=== PATIENT | female | born 1955 | race Caucasian/White ===

== ENCOUNTER 2016-06-05 10:32 | Emergency (ER) | payer OTHER, MEDICARE ==
--- NOTE | 2016-06-05 10:46 | ED GI/GU/ABDOMINAL COMPLAINT ---
History of Present Illness General Chief Complaint: Abdominal Pain/Flank Pain Stated Complaint: LBP ABD PAIN Source: patient Exam Limitations: no limitations Vital Signs & Intake/Output Vital Signs & Intake/Output Vital Signs Date Time Temp Pulse Resp B/P Pulse O2 O2 Flow FiO2 Ox Delivery Rate 06/05 1238 96.9 88 18 134/62 97 Room Air 06/05 1035 97.5 75 16 147/82 97 Room Air ED Intake and Output 06/06 0000 06/05 1200 Intake Total 1000 Output Total 1 Balance 999 Intake, IV 1000 Output, Urine 1 Allergies Coded Allergies: latex (RASH 06/05/16) Reconcile Medications Albuterol Sulfate (Proair Hfa) 90 MCG HFA.AER.AD 2 PUF INH Q4-6 PRN PRN RESP (Reported) Beclomethasone Dipropionate (QVAR) 80 MCG AER.W.ADAP 2 PUF INH BID ASTHMA ( Reported) Glimepiride (Amaryl) 1 MG TABLET 0.5 TAB PO DAILY DM (Reported) Insulin Glargine,Hum.rec.anlog (Lantus Solostar) 100 UNIT/ML (3 ML) INSULN.PEN 4 UNIT SC QPM DM (Reported) Insulin Lispro (Humalog) 100 UNIT/ML CARTRIDGE DM (Reported) Metformin HCl (Fortamet) 500 MG TAB.ER.24 1 TAB PO BID DM (Reported) Metoprolol Succ XL (Toprol Xl) 50 MG TAB 1 TAB PO DAILY HTN (Reported) Rosuvastatin Calcium (Crestor) 10 MG TABLET 1 TAB PO DAILY HEART HEALTH ( Reported) Sertraline HCl 50 MG TABLET 1 TAB PO DAILY MENTAL HEALTH (Reported) Telmisartan (Micardis) 40 MG TABLET 0.5 TAB PO DAILY HTN (Reported) Telmisartan/Hydrochlorothiazid (Micardis Hct 80-25 MG Tablet) 80 MG-25 MG TABLET 0.5 TAB PO DAILY HTN (Reported) Triage Note: TRIAGE; PT TO ED S/P WAKING UP WITH LOWER BACK PAIN RADIATING TO SUSAN FLANK. DENIES ANY NEW URINARY S/S. STATES UNABLE TO SLEEP LAST NIGHT. DENIES ANY N/V. FEELS LIKE SHE HAS A FEVER, 97.5 IN TRIAGE AT THIS TIME. FEELS LIKE HER LOWER ABDOMEN IS FIRM WELL. Triage Nurses Notes Reviewed? yes ? N Is pt currently ? No HPI: 61-year-old female arrived to triage to room 6 for evaluation of low back pain that radiates to her lower abdomen since early this morning. She reports that the pain woke her up out of sleep. She denies any nausea, vomiting or diarrhea. She denies any fever or chills. She denies any change in her bowel or bladder patterns. She denies any urgency, hesitancy, frequency. Her last bowel movement was last night and she last ate this morning. He reports that she has a history of kidney stones and it feels a same that the pain is across her lower back, sharp and moderate in sensation. SHe denies any recent trauma. (CANDELARIO HI APRN) Past History Travel History Traveled to [place] past 21 day No Medical History Any Pertinent Medical History? see below for history Cardiovascular: hyperlipidemia Renal: nephrolithiasis Endocrine: diabetes Surgical History Surgical History: cholecystectomy, , hysterectomy Psychosocial History What is your primary language Indonesian Tobacco Use: Never used ETOH Use: denies use Illicit Drug Use: denies illicit drug use Family History Hx Contributory? No (CANDELARIO HI APRN) Review of Systems Review of Systems Constitutional: Reports: no symptoms. EENTM: Reports: no symptoms. Respiratory: Reports: no symptoms. Cardiovascular: Reports: no symptoms. GI: Reports: abdominal pain. Genitourinary: Reports: no symptoms. Musculoskeletal: Reports: back pain. Skin: Reports: no symptoms. Neurological/Psychological: Reports: no symptoms. Hematologic/Endocrine: Reports: no symptoms. Immunologic/Allergic: Reports: no symptoms. All Other Systems: Reviewed and Negative (CANDELARIO HI APRN) Physical Exam Physical Exam General Appearance: well developed/nourished, no apparent distress, alert, awake , comfortable Head: atraumatic, normal appearance Eyes: Bilateral: normal appearance, PERRL, EOMI, normal inspection. Neck: normal inspection, supple, full range of motion Respiratory: normal breath sounds, chest non-tender, no respiratory distress Cardiovascular: regular rate/rhythm Peripheral Pulses: 2+ radial (R), 2+ radial (L) Gastrointestinal: normal bowel sounds, soft, non-tender Back: normal inspection, normal range of motion Extremities: normal range of motion, evidence of injury, pelvis stable Neurologic/Psych: no motor/sensory deficits, awake, alert, oriented x 3, normal gait, normal mood/affect Skin: intact, normal color, warm/dry Core Measures ACS in differential dx? No Severe Sepsis Present: No Septic Shock Present: No (KOLTON MUKHERJEE,CANDELARIO) Progress Differential Diagnosis: kidney stone, UTI/pyelo Plan of Care: Orders Procedure Date/time Status LIPASE 06/05 1046 Complete COMPREHENSIVE METABOLIC PANEL 06/05 1046 Complete CBC WITHOUT DIFFERENTIAL 06/05 1046 Complete AMYLASE 06/05 1046 Complete URINALYSIS 06/05 1037 Complete Laboratory Tests 06/05/16 1058: Anion Gap 13, Estimated GFR > 60, BUN/Creatinine Ratio 28.6 H, Glucose 188 H, Calcium 9.8, Total Bilirubin 1.3, AST 20, ALT 36, Alkaline Phosphatase 64, Total Protein 7.7, Albumin 4.5, Globulin 3.2, Albumin/Globulin Ratio 1.4, Amylase 58, Lipase 113, CBC w Diff NO MAN DIFF REQ, RBC 4.63, MCV 90.5, MCH 30.3, RDW 14.7 H, MPV 9.4, Gran % 78.0 H, Lymphocytes % 14.9 L, Monocytes % 5.7, Eosinophils % 1.0, Basophils % 0.4, Absolute Granulocytes 8.3 H, Absolute Lymphocytes 1.6, Absolute Monocytes 0.6, Absolute Eosinophils 0.1, Absolute Basophils 0, PUBS MCHC 33.5 06/05/16 1054: Urine Color YEL, Urine Clarity HAZY H, Urine pH 6.0, Ur Specific [place] >= 1.030, Urine Protein >=300 H, Urine Ketones NEG, Urine Nitrite NEG, Urine Bilirubin NEG, Urine Urobilinogen 0.2, Ur Leukocyte Esterase TRACE H, Ur Microscopic SEDIMENT EXAMINED, Urine RBC 5-10 H, Urine WBC 1-3 H, Ur Epithelial Cells MOD H, Hyaline Casts RARE H, Urine Mucus FEW, Urine Hemoglobin LARGE H, Urine Glucose NEG Initial ED EKG: none Comments: 12:30 PM After 1 L of fluid and 30 of Toradol pain is much better and does not want any further pain medication at this time. PATIENT: IGNACIO ROWLAND PRESENT AGE: 61 PATIENT ACCOUNT NO: [id number] : 55 LOCATION: [facility] ORDERING PHYSICIAN: CANDELARIO HI APRN SERVICE DATE: 06/05/16 EXAM TYPE: CAT - CT ABD & PELVIS W/O IV CONTRAS EXAMINATION: CT ABDOMEN AND PELVIS WITHOUT CONTRAST CLINICAL INFORMATION: Hematuria and bilateral flank pain. COMPARISON: None. TECHNIQUE: Contiguous axial thin section helical images of the abdomen and pelvis were performed without oral or IV contrast. The data set was reformatted in the coronal and sagittal planes and reviewed on an independent workstation. DLP: 624 mGy-cm. FINDINGS: There is mild dependent bibasilar atelectasis. Within the lateral basal segment of the right lower lobe on image 27/728, there is a 3 mm nodular density adjacent to the pleura. There is a 5 mm nodule within the periphery of the left lower lobe on image 95. The visualized lung bases are otherwise clear. The visualized portions of the heart are unremarkable. The liver is of normal size and attenuation without focal lesions nor intrahepatic biliary ductal dilation. The patient is status post cholecystectomy. Surgical clips are identified. The spleen, pancreas, adrenal glands are unremarkable. Both kidneys are of normal size and attenuation without hydronephrosis or nephrolithiasis. There is a 19 mm cyst within the interpole region of the right kidney. There is no abdominal free fluid. There is neither mesenteric nor retroperitoneal lymphadenopathy. Normal unopacified loops of small and large bowel are identified. There is no pelvic free fluid. The urinary bladder is unremarkable. There is neither pelvic nor inguinal lymphadenopathy. Bone windows: Neither sclerotic nor lytic bone lesions are identified. There is disc height loss at L5/S1. IMPRESSION: Neither hydronephrosis nor nephrolithiasis. No evidence for acute abdominal or pelvic inflammatory or infectious processes. 3 mm right lower lobe nodular density. 5 mm left lower lobe nodule. Various management parameters for solitary pulmonary nodules are in the literature. According to the Fleischner Society, recommendations for pulmonary nodules are as follows: Nodule size < or = to 4 mm in LOW RISK PATIENTS: No follow up needed. Nodule size < or = to 4 mm in HIGH RISK PATIENTS: Follow up CT at 12 months; if unchanged, no further follow up. Nodule size > 4-6 mm in LOW RISK PATIENTS: Follow up CT at 12 months; if unchanged, no further follow up. Nodule size > 4-6 mm in HIGH RISK PATIENTS: Initial follow up CT at 6-12 months, then at 18-24 months if no change. Nodule size > 6-8 mm in LOW RISK PATIENTS: Initial follow up CT at 6-12 months, then at 18-24 months if no change. Nodule size > 6-8 mm in HIGH RISK PATIENTS: Initial follow up CT at 3-6 months, then 9-12 months and 24 months if no change. Nodule size > 8 mm in LOW RISK PATIENTS: Follow up CT at around 3, 9, and 24 months, dynamic contrast-enhanced CT, PET, and/or biopsy. Nodule size > 8 mm in HIGH RISK PATIENTS: Same as for low-risk patients. DICTATED BY: SONNY CALI MD DATE/TIME DICTATED:06/05/161217 JEWELRY COATER:KRISTINA DATE/TIME TRANSCRIBED:06/05/161217 CONFIDENTIAL, DO NOT COPY WITHOUT APPROPRIATE AUTHORIZATION. <Electronically signed in Other Vendor System> SIGNED BY: SONNY CALI MD 06/05/16 1228 I discussed CAT scan results with the patient and her family she will follow-up with her urologist Dr. GARDNER and her primary care provider. She will take Tylenol or extra strength Tylenol as needed for pain she does not one to take ibuprofen or Percocet. Case discussed with Dr. Muller. (CANDELARIO HI APRN) Departure Departure Time of Disposition: 1239 Disposition: HOME OR SELF CARE Condition: Stable Clinical Impression Primary Impression: Back pain Qualifiers: Back pain location: low back pain Chronicity: acute Back pain laterality: bilateral Sciatica presence: without sciatica Qualified Code: M54.5 - Low back pain Secondary Impressions: Hematuria, Pulmonary nodules Referrals: GRECIA MA,RAUL Do (PCP/Family) Additional Instructions: Please follow-up with your urologist this week to discuss CAT scan and blood work results along with UA. Please also give CAT scan results to your primary care provider to monitor, evaluate pulmonary nodules that were detected. Please return to the emergency department for any worsening or concerning symptoms. Departure Forms: Customer Survey General Discharge Information (CANDELARIO HI APRN) PA/INCOME TAX INVESTIGATOR Co-Sign Statement Statement: ED Attending supervision documentation- x I saw and evaluated the patient. I have also reviewed all the pertinent lab results and diagnostic results. I agree with the findings and the plan of care as documented in the PA's/INCOME TAX INVESTIGATOR's documentation. [] I have reviewed the ED Record and agree with the PA's/INCOME TAX INVESTIGATOR's documentation. [] Additions or exceptions (if any) to the PAs/INCOME TAX INVESTIGATOR's note and plan are summarized below: [] (GUMARO MA,ANDRES)
[2016-06-05] MEDS ORDERED: MICARDIS40 M1 PO (11:16)
[2016-06-05] MEDS ORDERED: TOPROL XL50 M1 PO (11:16)
[2016-06-05 11:18] LABS: ABSOLUTE BASOPHIL COUNT 0 /CUMM (0.0-0.2); ABSOLUTE EOSINOPHIL COUNT 0.1 /CUMM (0.0-0.7); ABSOLUTE GRANULOCYTE CT 8.3 /CUMM (1.4-6.5); ABSOLUTE LYMPH COUNT 1.6 /CUMM (1.2-3.4); ABSOLUTE MONOCYTE COUNT 0.6 /CUMM (0.10-0.60); BASOPHIL % 0.4 % (0.0-2.0); HEMATOCRIT 41.9 % (37-47); MEAN CORPUSCULAR HGB 30.3 PG (27.0-31.0); MEAN CORPUSCULAR HGB CONC 33.5 G/DL (33.0-37.0); MEAN CORPUSCULAR VOLUME 90.5 FL (81.0-99.0); MEAN PLATELET VOLUME 9.4 FL (7.4-10.4); PLATELET COUNT 287 /CUMM (130-400); RBC DISTRIBUTION WIDTH 14.7 % (11.5-14.5); RED BLOOD CELL CT 4.63 /CUMM (4.20-5.40); WHITE BLOOD CELL COUNT 10.6 /CUMM (4.8-10.8)
[2016-06-05] MEDS ORDERED: MICARDIS HCT 81 EAC1 PO (11:19)
[2016-06-05] MEDS ORDERED: CRESTOR10 M1 PO (11:20)
[2016-06-05] MEDS ORDERED: SERTRALINE HCL50 MG PO (11:20)
[2016-06-05] MEDS ORDERED: FORTAMET500 MG PO (11:22)
[2016-06-05] MEDS ORDERED: AMARYL1 M1 PO (11:23)
[2016-06-05] MEDS ORDERED: HUMALOG100 UNIT/1 SC (11:24)
[2016-06-05] MEDS ORDERED: LANTUS SOL100 UNIT/1 SC (11:25)
[2016-06-05] MEDS ORDERED: PROAIR HFA8.5 GM INH (11:25)
[2016-06-05] MEDS ORDERED: QVAR8.7 G1 INH (11:26)
--- NOTE | 2016-06-05 12:28 | CT SCAN REPORT ---
EXAMINATION: CT ABDOMEN AND PELVIS WITHOUT CONTRAST CLINICAL INFORMATION: Hematuria and bilateral flank pain. COMPARISON: None. TECHNIQUE: Contiguous axial thin section helical images of the abdomen and pelvis were performed without oral or IV contrast. The data set was reformatted in the coronal and sagittal planes and reviewed on an independent workstation. DLP: 624 mGy-cm. FINDINGS: There is mild dependent bibasilar atelectasis. Within the lateral basal segment of the right lower lobe on image 27/728, there is a 3 mm nodular density adjacent to the pleura. There is a 5 mm nodule within the periphery of the left lower lobe on image 95. The visualized lung bases are otherwise clear. The visualized portions of the heart are unremarkable. The liver is of normal size and attenuation without focal lesions nor intrahepatic biliary ductal dilation. The patient is status post cholecystectomy. Surgical clips are identified. The spleen, pancreas, adrenal glands are unremarkable. Both kidneys are of normal size and attenuation without hydronephrosis or nephrolithiasis. There is a 19 mm cyst within the interpole region of the right kidney. There is no abdominal free fluid. There is neither mesenteric nor retroperitoneal lymphadenopathy. Normal unopacified loops of small and large bowel are identified. There is no pelvic free fluid. The urinary bladder is unremarkable. There is neither pelvic nor inguinal lymphadenopathy. Bone windows: Neither sclerotic nor lytic bone lesions are identified. There is disc height loss at L5/S1. IMPRESSION: Neither hydronephrosis nor nephrolithiasis. No evidence for acute abdominal or pelvic inflammatory or infectious processes. 3 mm right lower lobe nodular density. 5 mm left lower lobe nodule. Various management parameters for solitary pulmonary nodules are in the literature. According to the Fleischner Society, recommendations for pulmonary nodules are as follows: Nodule size < or = to 4 mm in LOW RISK PATIENTS: No follow up needed. Nodule size < or = to 4 mm in HIGH RISK PATIENTS: Follow up CT at 12 months; if unchanged, no further follow up. Nodule size > 4-6 mm in LOW RISK PATIENTS: Follow up CT at 12 months; if unchanged, no further follow up. Nodule size > 4-6 mm in HIGH RISK PATIENTS: Initial follow up CT at 6-12 months, then at 18-24 months if no change. Nodule size > 6-8 mm in LOW RISK PATIENTS: Initial follow up CT at 6-12 months, then at 18-24 months if no change. Nodule size > 6-8 mm in HIGH RISK PATIENTS: Initial follow up CT at 3-6 months, then 9-12 months and 24 months if no change. Nodule size > 8 mm in LOW RISK PATIENTS: Follow up CT at around 3, 9, and 24 months, dynamic contrast-enhanced CT, PET, and/or biopsy. Nodule size > 8 mm in HIGH RISK PATIENTS: Same as for low-risk patients.
[2016-06-05 12:38] VITALS: BP 134/62
== END 2016-06-05 12:45 ==
LOC: ERH 10:32
PROVIDERS: Nurse Practitioner Family
DX: M54.5 Low back pain (principal); R31.9 Hematuria, unspecified; R91.1 Solitary pulmonary nodule
CPT/HCPCS: 74176; 81001; 96361; 96374; J1885

== ENCOUNTER 2016-11-21 13:19 | Emergency (ER) | payer OTHER, MEDICARE ==
[~2016-11-21] VITALS: Ht 175.3 cm; Wt 90.7 kg
[~2016-11-21 13:19] MED LIST: AMARYL1 M1 PO; CRESTOR10 M1 PO; FORTAMET500 MG PO; HUMALOG100 UNIT/1 SC; LANTUS SOL100 UNIT/1 SC; MICARDIS HCT 81 EAC1 PO; MICARDIS40 M1 PO; PROAIR HFA8.5 GM INH; QVAR8.7 G1 INH; SERTRALINE HCL50 MG PO; TOPROL XL50 M1 PO
--- NOTE | 2016-11-21 13:55 | ED UPPER/LOWER EXTREMITY COMPL ---
History of Present Illness General Chief Complaint: Lower Extremity Problems Stated Complaint: RIGHT KNEE PAIN Source: patient Exam Limitations: no limitations Vital Signs & Intake/Output Vital Signs & Intake/Output Vital Signs Date Time Temp Pulse Resp B/P B/P Pulse O2 O2 Flow FiO2 Mean Ox Delivery Rate 11/21 1521 98.0 74 18 124/84 100 Room Air 11/21 1445 99 Room Air 11/21 1321 96.9 78 16 138/72 96 Room Air Allergies Coded Allergies: latex (RASH 06/05/16) Reconcile Medications Albuterol Sulfate (Proair Hfa) 90 MCG HFA.AER.AD 2 PUF INH Q4-6 PRN PRN RESP (Reported) Beclomethasone Dipropionate (QVAR) 80 MCG AER.W.ADAP 2 PUF INH BID ASTHMA ( Reported) Glimepiride (Amaryl) 1 MG TABLET 0.5 TAB PO DAILY DM (Reported) Insulin Glargine,Hum.rec.anlog (Lantus Solostar) 100 UNIT/ML (3 ML) INSULN.PEN 4 UNIT SC QPM DM (Reported) Insulin Lispro (Humalog) 100 UNIT/ML CARTRIDGE DM (Reported) Metformin HCl (Fortamet) 500 MG TAB.ER.24 1 TAB PO BID DM (Reported) Metoprolol Succ XL (Toprol Xl) 50 MG TAB 1 TAB PO DAILY HTN (Reported) Naproxen 375 MG TABLET 1 TAB PO BID PRN PAIN with food Rosuvastatin Calcium (Crestor) 10 MG TABLET 1 TAB PO DAILY HEART HEALTH ( Reported) Sertraline HCl 50 MG TABLET 1 TAB PO DAILY MENTAL HEALTH (Reported) Telmisartan (Micardis) 40 MG TABLET 0.5 TAB PO DAILY HTN (Reported) Telmisartan/Hydrochlorothiazid (Micardis Hct 80-25 MG Tablet) 80 MG-25 MG TABLET 0.5 TAB PO DAILY HTN (Reported) Triage Note: 61 Y/O FEMALE C/O R KNEE PAIN SINCE TUESDAY; DENIES INJURY OR TRAUMA. STATES PAIN HAS BEEN CONSTANT SINCE ONSET - NO RELIEF WITH TYLENOL OR WEARING BRACE. REPORTS KNOWN HX ARTHRITIS. DECLINES OFFER OF MEDS IN TRIAGE. DECLINES W/C Triage Nurses Notes Reviewed? yes Onset: Gradual Duration: constant Severity: moderate Severity Numbers: 6 Method of Injury: unknown HPI: Patient is a 61-year-old female with a past medical history of bilateral knee arthritis and diabetes who presents emergency and that last week patient was more active due to her granddaughter visiting over denies any mechanism injury or trauma to the right knee where she complains of a gradual onset of a three- day history of medial right knee pain. Patient has been taking Tylenol with minimal relief of symptoms. States that deep knee bend and ambulation make worse. Denies any fever chills leg swelling ankle pain and hip pain. (BOUCHRA BROWN) Past History Travel History Traveled to [place] past 21 day No Medical History Any Pertinent Medical History? see below for history Neurological: NONE EENT: NONE Cardiovascular: hyperlipidemia Respiratory: NONE Gastrointestinal: NONE Hepatic: NONE Renal: nephrolithiasis Musculoskeletal: NONE Psychiatric: NONE Endocrine: diabetes Blood Disorders: NONE Cancer(s): NONE FREIGHT TEAM ASSOCIATE/Reproductive: NONE Surgical History Surgical History: cholecystectomy, , hysterectomy Psychosocial History What is your primary language Turkish Tobacco Use: Never used Family History Hx Contributory? No (BOUCHRA BROWN) Review of Systems Review of Systems Constitutional: Reports: no symptoms. EENTM: Reports: no symptoms. Respiratory: Reports: no symptoms. Cardiovascular: Reports: no symptoms. Gastrointestinal/Abdominal: Reports: no symptoms. Genitourinary: Reports: no symptoms. Musculoskeletal: Reports: see HPI, joint pain. Skin: Reports: no symptoms. Neurological/Psychological: Reports: no symptoms. Hematologic/Endocrine: Reports: no symptoms. Immunological: Reports: no symptoms. All Other Systems: Reviewed and Negative (BOUCHRA BROWN) Physical Exam Physical Exam General Appearance: no apparent distress, alert Neurologic/Tendon: normal sensation, normal motor functions, normal tendon functions, responds to pain, no evidence tendon injury, no pulse deficit Skin: intact, normal color, warm/dry Comments: Well-developed well-nourished no apparent distress. HEENT: Atraumatic, extraocular motion intact Neck: Supple, no lymphadenopathy Back: Nontender Respiratory: No respiratory distress Extremities: Right hip normal inspection nontender full active range of motion Right knee normal section full active range of motion medial joint line point tenderness Valgus stress test showed no laxity however did reproduce pain Negative varus stress test negative anterior drawer test negative posterior drawer test. Medial joint line point tenderness noted Right ankle normal inspection nontender Right lower extremity dermatomes intact Neuro: Alert and oriented x3 Psych: Mood affect normal, normal memory normal judgment. (BOUCHRA BROWN) Progress Differential Diagnosis: arterial insufficiency, compartment syndrome, contusion, dislocation, DVT, fracture, gout, septic arthritis, sprain, tendon injury Plan of Care: Orders Procedure Date/time Status Durable Medical Equipment 11/21 1448 Active Patient denies any mechanism injury however does have medial joint line pain and MCL region, point tenderness however no laxity is noted. Patient does feel comfortable with a knee immobilizer as she's used this in the past one will be provided however she did drive to the emergency room where one was provided but not applied in the emergency room. No concerns of septic arthritis or infectious process. X-ray copy was provided to patient for out source orthopedic established doctor. Patient has at home cane and crutches for fall prevention which I ADVISED PT patient to begin using X-rays are unremarkable for acute fracture or process (BOUCHRA BROWN) Diagnostic Imaging: Viewed by Me: Radiology Read. Radiology Impression: no fracture Comments: PATIENT: IGNACIO ROWLAND PRESENT AGE: 61 PATIENT ACCOUNT NO: [id number] : 55 LOCATION: [facility] ORDERING PHYSICIAN: BOUCHRA THOMPSON SERVICE DATE: 11/21/16 EXAM TYPE: RAD - XRY-KNEE COMPLETE RIGHT EXAMINATION: XR KNEE, RIGHT CLINICAL INFORMATION: Pain since Tuesday. No known injury. Evaluate for fracture. History of arthritis per patient. COMPARISON: Right knee films from 08/30/2010. TECHNIQUE: Four views of the right knee. FINDINGS: No acute fracture or dislocation. Small suprapatellar knee joint effusion. Severe patellofemoral and moderate medial femoral compartment arthritic changes are seen with joint space narrowing and irregularity, spurring and cystic change. Small well-corticated bone fragment is seen adjacent to the medial femoral condyle, perhaps related to enthesopathic or capsular calcification. Relative widening of the lateral femoral compartment is seen. Prominent cystic changes are seen at the lateral and posterior aspect of the lateral femoral condyle. No evidence of chondrocalcinosis. IMPRESSION: Prominent degenerative changes in the knee. No acute fracture or dislocation. DICTATED BY: LIAN MATTHEW MD DATE/TIME DICTATED:11/21/161439 SUPPORT ARCHITECT:KRISTINA (BOUCHRA BROWN) Departure Departure Disposition: HOME OR SELF CARE Condition: Stable Clinical Impression Primary Impression: Knee pain, right Secondary Impressions: Arthritis, Knee MCL sprain Referrals: GRECIA MA,RAUL Do (PCP/Family) Additional Instructions: As discussed begin icing the area directly 20 minutes every 2 hours. Begin using the knee immobilizer for stability and support. Begin using your already owned crutches or cane for fall prevention. Begin the prescription Naprosyn for pain and inflammation. Next week follow-up with your established orthopedic doctor for further evaluation and treatment. Please provide them with the copy of x-ray results provided to the emergency room. If symptoms worsen or IF YOU develop new concerning symptom return to emergency room Departure Forms: Customer Survey General Discharge Information Prescriptions: Current Visit Scripts Naproxen 1 TAB PO BID PRN PAIN #30 TAB with food (BOUCHRA BROWN) PA/INJECTION MOLDING MACHINE TENDER Co-Sign Statement Statement: ED Attending supervision documentation- [] I saw and evaluated the patient. I have also reviewed all the pertinent lab results and diagnostic results. I agree with the findings and the plan of care as documented in the PA's/INJECTION MOLDING MACHINE TENDER's documentation. [X] I have reviewed the ED Record and agree with the PA's/INJECTION MOLDING MACHINE TENDER's documentation. [] Additions or exceptions (if any) to the PAs/INJECTION MOLDING MACHINE TENDER's note and plan are summarized below: [] (KWABENA MA,VIKKI)
[2016-11-21] MEDS ORDERED: NAPROXEN375 M2 PO (14:49)
--- NOTE | 2016-11-21 14:55 | RADIOLOGY REPORT ---
EXAMINATION: XR KNEE, RIGHT CLINICAL INFORMATION: Pain since Tuesday. No known injury. Evaluate for fracture. History of arthritis per patient. COMPARISON: Right knee films from 08/30/2010. TECHNIQUE: Four views of the right knee. FINDINGS: No acute fracture or dislocation. Small suprapatellar knee joint effusion. Severe patellofemoral and moderate medial femoral compartment arthritic changes are seen with joint space narrowing and irregularity, spurring and cystic change. Small well-corticated bone fragment is seen adjacent to the medial femoral condyle, perhaps related to enthesopathic or capsular calcification. Relative widening of the lateral femoral compartment is seen. Prominent cystic changes are seen at the lateral and posterior aspect of the lateral femoral condyle. No evidence of chondrocalcinosis. IMPRESSION: Prominent degenerative changes in the knee. No acute fracture or dislocation.
[2016-11-21 15:21] VITALS: BP 124/84
== END 2016-11-21 15:22 ==
LOC: ERH 13:19
DX: S83.411A Sprain of medial collateral ligament of right knee, initial encounter (principal); M17.9 Osteoarthritis of knee, unspecified; M25.561 Pain in right knee; X58.XXXA Exposure to other specified factors, initial encounter; Y93.9 Activity, unspecified; Y92.9 Unspecified place or not applicable
CPT/HCPCS: 73562-RT